=== PATIENT | female | born 1965 | race Caucasian/White ===

== ENCOUNTER 2023-02-20 12:03 | Emergency (ER) | payer MEDICARE, OTHER ==
[~2023-02-20] VITALS: Ht 170.2 cm; Wt 61.2 kg
--- NOTE | 2023-02-20 13:13 | NUR ---
C/O LEFT HIP PAIN S/P SLIP AND FALL X 2 HOURS AGO. [id number]. BREATHING EVEN AND UNLABORED. AWAITING MD DELUCA
--- NOTE | 2023-02-20 13:38 | NUR ---
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
--- NOTE | 2023-02-20 13:38 | NUR ---
CHILD AND FAMILY SERVICES SPECIALIST AT BEDSIDE FOR HIP XRAY.
[2023-02-20] MEDS ORDERED: KETOROLAC TROMETHAMINE INJ 60 MG/2 ML VIAL IM ONE (14:30)
[2023-02-20] MEDS ORDERED: KETOROLAC TROMETHAMINE INJ 30 MG/ML VIAL ONE (14:32)
[2023-02-20] MEDS ORDERED: HYDROMORPHONE 1 MG/1 ML DISP.SYRIN IM ONE (16:00)
[2023-02-20] MEDS ORDERED: HYDROMORPHONE 1 MG/1 ML DISP.SYRIN ONE (16:21)
[2023-02-20] MEDS ORDERED: HYDROCODONE/APAP 5/325MG TABLET ONE (18:29)
[2023-02-20] MEDS ORDERED: HYDROCODONE/APAP 10/325MG TABLET PO ONE (18:30)
[2023-02-20] MEDS ORDERED: HYDROCODONE/APAP 10/325MG TABLET ONE (18:33)
[2023-02-20] MEDS ORDERED: HYDR-3976 PO (19:30)
[2023-02-20] MEDS ORDERED: METH-647 PO (19:30)
--- NOTE | 2023-02-20 19:37 | NUR ---
Patient discharged to home in stable condition. Written and verbal after care instructions given. Patient verbalizes understanding of instruction.
[2023-02-20 19:39] VITALS: BP 167/99
== END 2023-02-20 19:40 | disposition home or self-care (01) ==
LOC: ER 12:20
DX: M25.552 Pain in left hip (principal); M54.50 Low back pain, unspecified; J45.909 Unspecified asthma, uncomplicated; Z79.899 Other long term (current) drug therapy; Z88.1 Allergy status to other antibiotic agents; Z91.040 Latex allergy status; W01.0XXA Fall on same level from slipping, tripping and stumbling without subsequent striking against object, initial encounter; Y93.02 Activity, running; Y92.89 Other specified places as the place of occurrence of the external cause; Y99.8 Other external cause status
CPT/HCPCS: 99285; 73700; 96372 ×2; 73503; 72131; 72192; J1885; J1170; 73502